=== PATIENT | male | born 1995 | race Caucasian/White ===

== ENCOUNTER 2021-10-03 09:21 | Emergency (ER) | payer SELFPAY ==
[~2021-10-03] VITALS: Ht 177.8 cm; Wt 105.5 kg
[2021-10-03 09:27] VITALS: BP 146/87
[2021-10-03] MEDS ORDERED: AMOX-580 PO (11:39)
== END 2021-10-03 11:52 | disposition home or self-care (01) ==
LOC: ER 09:22
DX: H66.93 Otitis media, unspecified, bilateral (principal); J01.90 Acute sinusitis, unspecified; Z20.822 Contact with and (suspected) exposure to COVID-19
CPT/HCPCS: 87635; 99283; C9803